=== PATIENT | male | born 1960 | race Two or more races ===

== ENCOUNTER 2016-10-04 14:31 | Emergency (ER) | payer MEDICARE ==
[~2016-10-04] VITALS: Ht 172.7 cm; Wt 60.0 kg
[~2016-10-04 14:31] MED LIST: BACL10TA PO; COLL30T TOPICAL; IBUP800T23 PO; TRAM50TA PO
[2016-10-04 14:44] VITALS: BP 137/54; PULSE 71; RESP 16; TEMP 97.2; O2SAT 99
[2016-10-04] MEDS ORDERED: NEUR300C PO (14:55)
[2016-10-04] MEDS ORDERED: OMEP20TA PO (14:55)
[2016-10-04] MEDS ORDERED: TEMA15CA PO (14:55)
--- NOTE | 2016-10-04 15:13 | PD ---
HPI Chief Complaint: Edema Time Seen by Provider: 15:13 Travel History International Travel<30 days: No Contact w/Intl Traveler<30days: No Traveled to known affect area: No History of Present Illness HPI 56 year old male presents to the ED for evaluation at the insistence of his . The patient states that the couple is having issues with mold in their home. They are being evaluated on an outpatient basis, but the patients was concerned and wants them both evaluated. On presentation the patient has no somatic complaints. He denies headaches, dizziness, sinus congestion, runny nose, sore throat, cough, shortness of breath, changes in appetite, nausea, vomiting. 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 Purvis. He denies increased pain, redness, swelling, discharge of the wound. PFSH Past Medical History Medical History: Denies Significant Hx Tetanus Vaccination: < 5 Years Influenza Vaccination: No Past Surgical History Genitourinary Surgery: Yes (testical) Tonsillectomy: Yes Social History Alcohol Use: Yes Tobacco Use: Yes Substance Use: No Allergies-Medications (Allergen,Severity, Reaction): Coded Allergies: No Known Allergies (Unverified , 10/04/16) Reported Meds & Prescriptions Reported Meds & Active Scripts Active Reported Omeprazole 20 Mg Tab 20 Mg PO DAILY Temazepam 15 Mg Cap 15 Mg PO HS PRN Neurontin (Gabapentin) 300 Mg Cap 300 Mg PO TID Tramadol (Tramadol HCl) 50 Mg Tab 50 Mg PO Q8H PRN Baclofen 10 Mg Tab 10 Mg PO TID PRN Review of Systems Except as stated in HPI: all other systems reviewed are Neg Physical Exam Narrative GENERAL: Well-nourished, well-developed white male in no acute distress. SKIN: Warm and dry. There is partial amputation of the fourth digit of the left hand. The wound is granulating well without sign of infection. HEAD: Normocephalic. Atraumatic. EYES: No scleral icterus. No injection or drainage. PERRLA. EOMI. ENT: Pearly siegel tympanic membranes bilaterally. Nasal mucosa is moist. Oropharynx without erythema, edema or exudate. Floor of the mouth is soft. Uvula midline. Airway patent. NECK: Supple, trachea midline. No JVD or lymphadenopathy. CARDIOVASCULAR: Regular rate and rhythm without murmurs, gallops, or rubs. 2+ DP and radial pulses bilaterally. RESPIRATORY: Breath sounds clear and equal bilaterally. No accessory muscle use. GASTROINTESTINAL: Abdomen soft, non-tender, nondistended. + Bowel sounds MUSCULOSKELETAL: No cyanosis, or edema. Patient is ambulatory and moves extremities spontaneously. BACK: Nontender without obvious deformity. No CVA tenderness. Data Data Last Documented VS Vital Signs Date Time Temp Pulse Resp B/P Pulse Ox O2 Delivery O2 Flow Rate FiO2 10/04/16 14:44 97.2 71 16 137/54 99 MDM Medical Decision Making Medical Screen Exam Complete: Yes Emergency Medical Condition: No Differential Diagnosis seasonal allergies versus anxiety versus wound infection versus other Narrative Course 56 year old male presents to the ED for evaluation at the insistence of his . The patient states that the couple is having issues with mold in their home. They are being evaluated on an outpatient basis, but the patients was concerned and wants them both evaluated. On presentation the patient has no somatic complaints. He denies headaches, dizziness, sinus congestion, runny nose, sore throat, cough, shortness of breath, changes in appetite, nausea, vomiting. 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 Purvis. He denies increased pain, redness, swelling, discharge of the wound. Vitals reviewed. Physical exam is unremarkable. Clean dressing was placed over the amputated digit. No medical emergency exists at this time. A medical screening exam was performed: At the time of evaluation the presenting medical condition was determined not to be of an emergent nature. The patient was given the option of receiving additional care, but declined. Patient was given options for additional community resources from which to obtain care. The Patient Has Been advised to seek medical attention for their presenting complaint. The patient has been advised to return to the ER at any time if an emergent condition develops. Diagnosis Primary Impression: Encounter for medical screening examination Condition: Stable Suri Tam October 04, 2016 15:13
== END 2016-10-04 15:40 | disposition left against medical advice (07) ==
LOC: PHEFT 14:31
DX: Z76.89 Persons encountering health services in other specified circumstances (principal); Z72.0 Tobacco use
CPT/HCPCS: 99281